=== PATIENT | female | born 1945 | race Caucasian/White ===

== ENCOUNTER → 2024-06-01 10:54 | Outpatient (REF) | payer OTHER, SELFPAY | LOC: HWWDC 10:54 | PROVIDERS: ATTENDING PHYSICIAN Family Medicine | DX: Z12.31 Encounter for screening mammogram for malignant neoplasm of breast (principal) | CPT/HCPCS: 77063; 77067 ==

== ENCOUNTER 2024-08-31 06:15 | Outpatient (RCR) | payer OTHER, SELFPAY | END 2024-08-31 23:59 | disposition home or self-care (01) | LOC: RPT 06:15 | PROVIDERS: ATTENDING PHYSICIAN Student in an Organized Health Care Education/Training Program; FAMILY PHYSICIAN Family Medicine | DX: M79.9 Soft tissue disorder, unspecified (principal); Z73.6 Limitation of activities due to disability; M79.7 Fibromyalgia; R26.89 Other abnormalities of gait and mobility | CPT/HCPCS: 97110; 97162 ==

== ENCOUNTER 2024-09-13 10:53 | Outpatient (RCR) | payer OTHER, SELFPAY | END 2024-09-13 12:02 | disposition home or self-care (01) | LOC: RPT 10:53 | PROVIDERS: ATTENDING PHYSICIAN Student in an Organized Health Care Education/Training Program; FAMILY PHYSICIAN Family Medicine | DX: M79.9 Soft tissue disorder, unspecified (principal); Z73.6 Limitation of activities due to disability; M79.7 Fibromyalgia; R26.89 Other abnormalities of gait and mobility | CPT/HCPCS: 97110 ==